=== PATIENT | female | born 1955 | race Caucasian/White ===

== ENCOUNTER 2017-10-15 09:01 | Day surgery (SDC) | payer OTHER ==
[~2017-10-15] VITALS: Ht 167.6 cm; Wt 73.5 kg
[~2017-10-15 09:01] MED LIST: ATIVAN0.5 MG PO; ATIVAN1 MG PO; CELEXA40 MG PO; DESVENLAFAXINE50 M3 PO; DEXEDRINE10 MG PO; FLEXERIL10 MG PO; GLUCOPHAGE XR,500 MG PO; LIPITOR20 MG PO; MOTRIN600 MG PO; PROAIR HFA8.5 GM IH; REPAN 50-325-41 EAC1 PO; SYNTHROID50 MCG PO; ULTRAM50 MG PO; [UNRECOGNIZED DRUG - OTHER]
[2017-10-15 10:07] VITALS: BP 118/61
[2017-10-15 13:15] VITALS: BP 150/76
[2017-10-15 13:38] VITALS: BP 136/66
== END 2017-10-15 13:50 | disposition home or self-care (01) ==
LOC: SDC 09:01
PROVIDERS: Ophthalmology
PROC: 08B53ZZ Excision of Left Vitreous, Percutaneous Approach (ICD-10-PCS; principal; 2017-10-15)
PROC: 3E0C329 Introduction of Other Anti-infective into Eye, Percutaneous Approach (ICD-10-PCS; principal; 2017-10-15)
PROC: 3E0C33Z Introduction of Anti-inflammatory into Eye, Percutaneous Approach (ICD-10-PCS; principal; 2017-10-15)
DX: H43.392 Other vitreous opacities, left eye (principal); H43.812 Vitreous degeneration, left eye; E11.9 Type 2 diabetes mellitus without complications; E03.9 Hypothyroidism, unspecified; F41.8 Other specified anxiety disorders; Z88.6 Allergy status to analgesic agent; Z79.84 Long term (current) use of oral hypoglycemic drugs; K21.9 Gastro-esophageal reflux disease without esophagitis
CPT/HCPCS: 82948; J0690; J0713; J2250